=== PATIENT | female | born 1990 | race Caucasian/White ===

== ENCOUNTER → 2023-11-15 18:30 | Outpatient (CLI) | payer OTHER, SELFPAY ==
--- NOTE | 2023-11-15 18:33 | DI.RAD.S_ITS ---
PROCEDURE: XR KNEE LT 4V INDICATIONS: Left knee injury TECHNIQUE: 4 views of the knee were acquired. COMPARISON: None. FINDINGS: Bones: No fractures or dislocations. No suspicious bony lesions. Soft tissues: Small joint effusion. No suspicious soft tissue calcifications. IMPRESSION: No acute osseous abnormality. If pain persists with conservative management, consider repeat x-ray in 10-14 days or cross-sectional imaging. Dictated by: Noble Galeano M.D. on 11/16/2023 at 9:04 Approved by: Noble Galeano M.D. on 11/16/2023 at 9:05
== END ==
PROVIDERS: Referring Provider Nurse Practitioner Family; Visit Provider Nurse Practitioner Family
DX: S80.02XA Contusion of left knee, initial encounter (principal); M25.462 Effusion, left knee; X58.XXXA Exposure to other specified factors, initial encounter
CPT/HCPCS: 73564